=== PATIENT | female | born 1940 | race African-American/Black ===

== ENCOUNTER → 2018-04-15 | Outpatient (CLI) | payer MEDICARE ==
[~2018-04-15] MED LIST: CARAFATE 1 GM TA1 GM PO; FLEXERIL PO; PREVACID 24HR15 MG PO; VALIUM2 MG PO; VITAMIN D1000 UNI1; VITAMINC500
== END ==
LOC: M.RAD 14:25
DX: M81.0 Age-related osteoporosis without current pathological fracture (principal); M85.89 Other specified disorders of bone density and structure, multiple sites; I10 Essential (primary) hypertension; Z78.0 Asymptomatic menopausal state

== ENCOUNTER 2019-06-07 15:37 | Emergency (ER) | payer MEDICARE, OTHER ==
[~2019-06-07] VITALS: Ht 160 cm; Wt 76.2 kg
[~2019-06-07 15:37] MED LIST changes: +ACETAMINOPHEN-1 EAC1 PO; +HYDROCHLOROTH12.5 M1 PO; +LIPITOR10 MG PO; +MEDROLDOSEPACK PO; +MIRALAX17 GM PO
[2019-06-07] MEDS ORDERED: B COMPLEX1 EACH PO (15:57)
[2019-06-07] MEDS ORDERED: [UNRECOGNIZED DRUG - MIXTURE] (15:58)
[2019-06-07] MEDS ORDERED: VITAMIN D400 UNIT PO (15:58)
[2019-06-07 16:20] LABS: ABSOLUTE LYMPHOCYTES 1.5 thou/uL (0.8-5.3); ABSOLUTE MONOCYTES 0.4 thou/uL (0.0-1.2); ABSOLUTE NEUTROPHILS 5.3 thou/uL (1.6-8.1); BASOPHILS 0.3 %; EOSINOPHILS 0.1 %; HEMATOCRIT 36.2 % (37.0-47.0); HEMOGLOBIN 12.3 gm/dL (12.0-15.0); LYMPHOCYTES 21.1 %; MCH 29.9 pg (26.0-34.0); MCV 87.9 fL (80.0-100.0); MPV 8.1 fl. (7.2-11.1); NUCLEATED RBCS 0 /100WBC; PLATELET COUNT* 224 thou/uL (150-400); POLYS 73.5 %; RBC 4.12 mil/uL (4.20-5.00); RDW-CV 16.8 % (10.5-14.5); WBC 7.2 thou/uL (4.0-11.0)
[2019-06-07 16:29] LABS: APTT 27.5 Seconds (25.0-31.3); INR 1.1; PROTIME 11.4 Seconds (9.20-11.50)
[2019-06-07 16:45] LABS: ANION GAP 6 mmol/L (7-16); BUN 13 mg/dL (7-18); CALCIUM 8.6 mg/dL (8.5-10.1); CHLORIDE 102 mmol/L (98-107); CO2 31 mmol/L (21-32); CREATININE 0.6 mg/dL (0.6-1.3); GLUCOSE 96 mg/dL (70-99); POTASSIUM 3.6 mmol/L (3.5-5.1); SODIUM 139 mmol/L (136-145)
[2019-06-07 16:48] LABS: ALBUMIN 3.4 g/dL (3.4-5.0); ALKALINE PHOSPHATASE 59 U/L (46-116); NT-PRO BRAIN NAT PEPTIDE 622 pg/mL (<300); SGOT 18 U/L (15-37); SGPT 30 U/L (30-65); TOTAL BILIRUBIN 0.4 mg/dL (<0.1-1.0); TOTAL PROTEIN 7.9 g/dL (6.4-8.2); TROPONIN-I LEVEL <0.06 ng/mL (<0.06)
[2019-06-07 16:48] LABS: URINE BILIRUBIN NEGATIVE (Negative); URINE BLOOD NEGATIVE (Negative); URINE CLARITY CLEAR; URINE COLOR YELLOW; URINE GLUCOSE-RANDOM NEGATIVE (Negative); URINE KETONES NEGATIVE (Negative); URINE LEUKOCYTES-REFLEX NEGATIVE (Negative); URINE NITRITE-REFLEX NEGATIVE (Negative); URINE PROTEIN NEGATIVE (Negative); URINE UROBILINOGEN 0.2 E.U./dl (0.2-1.0)
[2019-06-07 17:36] VITALS: BP 155/97
--- NOTE | 2019-06-08 10:12 | EKG ---
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: : 1940 Requested By: To Mullen Order Number: [id number] MD: Jovan Narvaez Measurements Intervals [place] Rate: 60 P: 25 [place]: 163 QRS: -35 QRSD: 106 T: 210 QT: 460 QTc: 460 Interpretive Statements Sinus rhythm Abnormal R-wave progression, 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
== END 2019-06-07 17:37 | disposition home or self-care (01) ==
LOC: M.ERS 15:37
PROVIDERS: Family Medicine
DX: R42 Dizziness and giddiness (principal); I10 Essential (primary) hypertension; Z91.010 Allergy to peanuts; Z90.710 Acquired absence of both cervix and uterus

== ENCOUNTER 2021-04-07 09:49 | Emergency (ER) | payer MEDICARE, OTHER ==
[~2021-04-07] VITALS: Ht 160 cm; Wt 77.6 kg
[~2021-04-07 09:49] MED LIST changes: +B COMPLEX1 EACH PO; +VITAMIN D400 UNIT PO; +[UNRECOGNIZED DRUG - MIXTURE]
[2021-04-07] MEDS ORDERED: LISINOPRIL20 MG PO (10:06)
[2021-04-07] MEDS ORDERED: PREDNISONE 20 M20 M1 PO (10:49)
[2021-04-07 11:34] VITALS: BP 186/89
== END 2021-04-07 11:35 | disposition home or self-care (01) ==
LOC: M.ERS 09:49
DX: T78.3XXA Angioneurotic edema, initial encounter (principal); I10 Essential (primary) hypertension; Z90.710 Acquired absence of both cervix and uterus; Z91.010 Allergy to peanuts; Z88.8 Allergy status to other drugs, medicaments and biological substances; Z79.899 Other long term (current) drug therapy